=== PATIENT | male | born 1975 | race African-American/Black ===

== ENCOUNTER 2016-07-10 18:07 | Emergency (ER) | payer OTHER ==
[~2016-07-10] VITALS: Ht 193 cm; Wt 83.9 kg
--- NOTE | ~2016-07-10 | EKG ---
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 07/11/16 1423 1844 1844 Washington Morrison MD, FACC /EPI
[~2016-07-10 18:07] MED LIST: BACTRIM DS TAB1 EACH PO; BENTYL20 MG PO; CIPROFLOXACIN500 M1 PO; COMPAZINE5 MG PO; DENIES; FLAGYL500 MG PO; FLEXERIL PO; FLOMAX0.4 MG PO; LORTAB 5 MG/5001 TA1 PO; NOHOMEMEDICATIONS; NORCO 5-325 TA1 EACH PO; ONDANSETRON HCL4 M2 PO; PERCOCET 5-3251 EACH PO; PHENERGAN 25 MG25 M1 PO; PHENERGAN 25 MG25 MG PO; PREDNISONE50 MG PO; PRILOSEC 20 MG20 MG PO; PRILOSEC20 MG; PRILOSEC40 MG PO; SUPRAX400 M1 PO; VICODIN 5-5001 EACH PO; ZOFRAN 4 MG ORAL4 M1 DIS; ZOFRAN ODT4 MG PO; ZOFRAN4 MG PO
[2016-07-10 18:52] LABS: HEMATOCRIT 50.8 % (42.0-52.0); HEMOGLOBIN 16.9 gm/dL (14.0-18.0); MCH 28.9 pg (26.0-34.0); MCHC 33.4 % (28.0-37.0); MCV 86.7 fL (80.0-100.0); PLATELET COUNT 221 thou/uL (150-400); RBC 5.86 mil/uL (4.50-6.00); RDW 14.9 % (10.5-14.5); WBC 13.3 thou/uL (4.0-11.0)
[2016-07-10 18:53] LABS: MANUAL DIFF YES
[2016-07-10 18:57] LABS: CALCIUM 10.3 mg/dL (8.5-10.1); CREATININE 1.5 mg/dL (0.6-1.3); POTASSIUM 3.9 mmol/L (3.5-5.1)
[2016-07-10 19:03] LABS: ALBUMIN 4.7 g/dL (3.4-5.0); TOTAL BILIRUBIN 0.5 mg/dL (<0.1-1.0); TOTAL PROTEIN 9.6 g/dL (6.4-8.2)
[2016-07-10 19:46] LABS: ABSOLUTE NEUTROPHILS 11.4 thou/uL (1.4-8.2); TOTAL CELL COUNT 100
[2016-07-10 19:47] LABS: ANISOCYTOSIS 1+
[2016-07-10 20:57] LABS: URINE BILIRUBIN 1+ (Negative); URINE BLOOD NEGATIVE (Negative); URINE COLOR YELLOW; URINE KETONES 3+ (Negative); URINE LEUKOCYTES-REFLEX NEGATIVE (Negative); URINE PROTEIN (DIPSTICK) 2+ (Negative); URINE SPECIFIC GRAVITY >= 1.030 (1.003-1.035); URINE UROBILINOGEN 0.2 E.U./dl (0.2-1.0)
[2016-07-10 21:18] LABS: URINE GLUCOSE-RANDOM* NEGATIVE (Negative)
[2016-07-10] MEDS ORDERED: PHENERGAN 25 MG25 M1 PO (21:18)
[2016-07-10 21:41] LABS: SQUAMOUS None Seen /LPF (0-3)
[2016-07-10 21:42] LABS: AMORPHOUS URATES Many /LPF (None Seen); CASTS None Seen /LPF (None Seen); CRYSTALS None Seen /LPF (None Seen); URINE RBC None Seen /HPF (0-2); URINE WBC-REFLEX None Seen /HPF (0-5)
== END 2016-07-10 22:10 | disposition home or self-care (01) ==
LOC: ER 18:07
PROVIDERS: Physician Assistant
DX: R10.30 Lower abdominal pain, unspecified (principal); R10.13 Epigastric pain; R19.7 Diarrhea, unspecified; R11.2 Nausea with vomiting, unspecified; F17.210 Nicotine dependence, cigarettes, uncomplicated; Z87.442 Personal history of urinary calculi; Z88.1 Allergy status to other antibiotic agents

== ENCOUNTER 2019-02-10 16:35 | Emergency (ER) | payer OTHER ==
[~2019-02-10] VITALS: Ht 193 cm; Wt 79.4 kg
[2019-02-10 18:53] LABS: ABSOLUTE NEUTROPHILS 13.9 thou/uL (1.4-8.2); BASOPHILS 0.4 % (0.0-2.0); EOSINOPHILS 0.1 % (0.0-3.0); HEMATOCRIT 50.7 % (42.0-52.0); LYMPHOCYTES 7.2 % (24.0-44.0); MCH 29.2 pg (26.0-34.0); MCHC 33.5 g/dL (28.0-37.0); MONOCYTES 2.3 % (1.0-8.0); PLATELET COUNT 204 thou/uL (150-400); RBC 5.82 mil/uL (4.50-6.00); RDW 14.3 % (10.5-14.5); WBC 15.4 thou/uL (4.0-11.0)
[2019-02-10 18:59] LABS: URINE BLOOD NEGATIVE (Negative); URINE CLARITY CLEAR; URINE GLUCOSE-RANDOM* NEGATIVE (Negative); URINE KETONES 1+ (Negative); URINE LEUKOCYTES-REFLEX NEGATIVE (Negative); URINE NITRITE-REFLEX NEGATIVE (Negative); URINE PROTEIN (DIPSTICK) 2+ (Negative); URINE SPECIFIC GRAVITY 1.025 (1.005-1.035); URINE UROBILINOGEN 0.2 E.U./dl (0.2-1.0)
[2019-02-10 19:00] LABS: URINE COLOR LIGHT AMBER
[2019-02-10 19:02] LABS: ICTOTEST (BILI CONFIRMATORY) Negative (Negative); URINE BILIRUBIN NEGATIVE (Negative)
[2019-02-10 19:06] LABS: CREATININE 1.3 mg/dL (0.7-1.3); POTASSIUM 4.1 mmol/L (3.5-5.1)
[2019-02-10 19:12] LABS: ALBUMIN 5.1 g/dL (3.4-5.0); TOTAL BILIRUBIN 0.6 mg/dL (<0.1-1.0); TOTAL PROTEIN 10.2 g/dL (6.4-8.2)
[2019-02-10 19:22] LABS: SQUAMOUS 0-3 Few /LPF (0-3)
[2019-02-10 19:23] LABS: CASTS None Seen /LPF (None Seen); MUCUS >6 Heavy strn/LPF (None Seen)
[2019-02-10 19:24] LABS: AMORPHOUS URATES Few /LPF (None Seen); BACTERIA-REFLEX None Seen /HPF (None Seen); URINE RBC 0-2 Rare /HPF (0-2); URINE WBC-REFLEX 0-5 Rare /HPF (0-5)
[2019-02-10] MEDS ORDERED: AUGMENTIN 875-1 EACH PO (19:40)
[2019-02-10] MEDS ORDERED: ZOFRAN ODT4 MG PO (19:46)
[2019-02-10 20:06] VITALS: BP 107/62
== END 2019-02-10 20:08 | disposition still patient (30) ==
LOC: ER 16:35
PROVIDERS: Emergency Medicine
DX: K57.92 Diverticulitis of intestine, part unspecified, without perforation or abscess without bleeding (principal); R11.2 Nausea with vomiting, unspecified; F17.210 Nicotine dependence, cigarettes, uncomplicated; Z87.442 Personal history of urinary calculi; Z88.1 Allergy status to other antibiotic agents; Z88.2 Allergy status to sulfonamides; Z88.8 Allergy status to other drugs, medicaments and biological substances

== ENCOUNTER 2019-02-12 10:59 | Emergency (ER) | payer OTHER ==
[~2019-02-12] VITALS: Ht 193 cm; Wt 79.4 kg
[~2019-02-12 10:59] MED LIST changes: +AUGMENTIN 875-1 EACH PO
[2019-02-12 11:35] LABS: BASOPHILS 0.5 % (0.0-2.0); EOSINOPHILS 0.3 % (0.0-3.0); HEMATOCRIT 49.6 % (42.0-52.0); HEMOGLOBIN 16.7 gm/dL (14.0-18.0); LYMPHOCYTES 18.6 % (24.0-44.0); MCH 29.5 pg (26.0-34.0); MCHC 33.7 g/dL (28.0-37.0); MCV 87.7 fL (80.0-100.0); MONOCYTES 7.4 % (1.0-8.0); PLATELET COUNT 208 thou/uL (150-400); POLYS 73.2 % (36.0-66.0); RBC 5.65 mil/uL (4.50-6.00); RDW 14.6 % (10.5-14.5); WBC 12.3 thou/uL (4.0-11.0)
[2019-02-12 11:37] LABS: CALCIUM 10.5 mg/dL (8.5-10.1); CREATININE 1.2 mg/dL (0.7-1.3); POTASSIUM 4.1 mmol/L (3.5-5.1)
[2019-02-12 11:40] LABS: URINE BLOOD NEGATIVE (Negative); URINE CLARITY CLEAR; URINE COLOR YELLOW; URINE GLUCOSE-RANDOM* NEGATIVE (Negative); URINE KETONES 1+ (Negative); URINE LEUKOCYTES-REFLEX NEGATIVE (Negative); URINE NITRITE-REFLEX NEGATIVE (Negative); URINE PROTEIN (DIPSTICK) 2+ (Negative); URINE SPECIFIC GRAVITY >= 1.030 (1.005-1.035); URINE UROBILINOGEN 0.2 E.U./dl (0.2-1.0)
[2019-02-12 11:42] LABS: ICTOTEST (BILI CONFIRMATORY) Negative (Negative); URINE BILIRUBIN NEGATIVE (Negative)
[2019-02-12 11:44] LABS: ALBUMIN 4.9 g/dL (3.4-5.0); TOTAL BILIRUBIN 0.8 mg/dL (<0.1-1.0); TOTAL PROTEIN 10.1 g/dL (6.4-8.2)
[2019-02-12] MEDS ORDERED: PRILOSEC OTC20 MG PO (11:48)
[2019-02-12 11:49] LABS: CASTS None Seen /LPF (None Seen); SQUAMOUS 0-3 Few /LPF (0-3); URINE WBC-REFLEX 0-5 Rare /HPF (0-5)
[2019-02-12 11:50] LABS: BACTERIA-REFLEX 1-9 Few /HPF (None Seen); CRYSTALS None Seen /LPF (None Seen); MUCUS 0-3 Light strn/LPF (None Seen); URINE RBC None Seen /HPF (0-2)
[2019-02-12 12:45] VITALS: BP 107/67
[2019-02-12] MEDS ORDERED: MACROBID 100 M100 M1 PO (12:52)
[2019-02-12] MEDS ORDERED: NORCO 5-325 TA1 EAC1 PO (12:54)
[2019-02-12] MEDS ORDERED: LEVSIN0.125 MG PO (12:54)
[2019-02-12] MEDS ORDERED: SENNA8.6 MG PO (12:54)
[2019-02-12] MEDS ORDERED: OMEPRAZOLE 20 M20 M1 PO (13:18)
[2019-02-12] MEDS ORDERED: CARAFATE 1 GM TA1 G1 PO (13:18)
== END 2019-02-12 13:04 | disposition home or self-care (01) ==
LOC: ER 10:59
PROVIDERS: Physician Assistant
DX: R10.31 Right lower quadrant pain (principal); R10.32 Left lower quadrant pain; R11.2 Nausea with vomiting, unspecified; F17.210 Nicotine dependence, cigarettes, uncomplicated; Z88.1 Allergy status to other antibiotic agents; Z88.2 Allergy status to sulfonamides; Z87.891 Personal history of nicotine dependence

== ENCOUNTER 2019-02-13 09:32 | Emergency (ER) | payer OTHER ==
[~2019-02-13] VITALS: Ht 193 cm; Wt 79.4 kg
--- NOTE | ~2019-02-13 | EMS ---
[address] [address] EMS Patient Care Report Name: DEWEY LOZANO Room #: REG MICHELLE Hooks#: [id number] Admission: 02/13/19 Attend Phys: Discharge: Date of : 73 Report #: [id number] THIS REPORT FOR: //name// Report Transmitted: 02/13/2019 08:52 EMS Care Summary [place], [place]/[facility] Incident [id number] @ 02/13/2019 08:54 Incident Location [address] [place] [address] Patient DEWEY LOZANO Male, 43 Years 1975 Patient Address [address] [place] [address] Patient History Diverticulitis, Patient Allergies No known allergies, Patient Medications Prilosec, Chief Complaint diverticulits is acting up Disposition Transported No Lights/[place] Dispatch Reason Abdominal Pain/Problems Transported To [facility] Narrative 43 y/o male with abd pain Upon arrival the pt was walking out of the residence and met EMS at the ambulance. The pt states his diverticulitis is acting up and he is [address] [address] EMS Patient Care Report Name: DEWEY LOZANO Room #: REG Neva#: [id number] Admission: 02/13/19 Attend Phys: Discharge: Date of : 73 Report #: [id number] experiencing lower R and Lower L abd pain that is an 02/10 aching burning pain. The pt states he was at the hospital yesterday for this same problem and they told him to come back if it got worse. The pt is now wanting to go back to [facility] to be re-evaluated. The pt is conscious A&O x 4 with a GCS of 15. He has a patent airway, breathing is normal, and has a strong reg radial pulse. The pt ambulated into the ambulance on his own with a steady gait. The pt sat on the cot, he was secured to the cot, and VS were obtained. The pt states he has picked up his antibiotic and pain medications but does not know the names of any of the medications. We offered to get his meds for him but he refused. the pt was transported to [place] per the pt's request. There were no incidents or changes with the pt during transport to [facility]. Pt was taken to room 8 per ED request. Report was given and EMS returned to service. Initial Vitals @09:11P: 56,R: 14,BP: 147/87,Pain: 8/10,GCS: 15,CO: 7,SpO2: 100,Revised Trauma: 12, @09:08P: 63,R: 14,BP: 155/90,Pain: 0/10,GCS: 15,SpO2: 99,Revised Trauma: 12, Assessments @09:13MENTAL:Person Oriented,Time Oriented,Event Oriented,Place Oriented,SKIN:HEENT:Head/Face: No Abnormalities,Neck/Airway: No Abnormalities,LUNG SOUNDS:Left Lower: Tenderness,General: Other,Right Lower: Tenderness,Left Upper: No Abnormalities,Right Upper: No Abnormalities,ABDOMEN:Left Lower: Tenderness,General: Other,Right Lower: Tenderness,Left Upper: No Abnormalities,Right Upper: No Abnormalities,PELVIS//GI:No Abnormalities,EXTREMITIES:Left Arm: No Abnormalities,Right Arm: No Abnormalities,Left Leg: No Abnormalities,Right Leg: No Abnormalities,PULSE:NEURO:No Abnormalities, Impression Abdominal Pain Procedures @09:13ALS AssessmentResponse: UnchangedSucceeded Timeline 08:52,Call Received 08:52,Dispatch Notified 08:54,Dispatched 08:55,En Route 09:04,On Scene 09:05,At Patient 09:08,BP: 155/90 M,PULSE: 63,RR: 14 R,SPO2: 99 Ox,ETCO2: ,BG: ,PAIN: 0,GCS: 15, 09:09,Depart Scene 09:11,BP: 147/87 M,PULSE: 56,RR: 14 R,SPO2: 100 Ox,ETCO2: ,BG: ,PAIN: 8,GCS: 15, [address] [place] [address] EMS Patient Care Report Name: BLAKEDEWEY Room #: REG MICHELLE Hooks#: [id number] Admission: 02/13/19 Attend Phys: Discharge: Date of : 73 Report #: [id number] 09:13,ALS Assessment,Response: UnchangedSucceeded, 09:38,At Destination 09:49,Call Closed Disclaimer [email or web address] Copyright 2019 [employer] This EMS Care Summary contains data elements from the applicable legal record (which may be displayed differently). It is designed to provide pertinent information for the following purposes: continuity of care, clinical quality, and state data reporting. The complete legal record is available to ED staff and administrators of the receiving hospital in [employer] Patient Tracker. All data is provided "as is."
[~2019-02-13 09:32] MED LIST changes: +CARAFATE 1 GM TA1 G1 PO; +LEVSIN0.125 MG PO; +MACROBID 100 M100 M1 PO; +NORCO 5-325 TA1 EAC1 PO; +OMEPRAZOLE 20 M20 M1 PO; +PRILOSEC OTC20 MG PO; +SENNA8.6 MG PO
[2019-02-13 09:54] LABS: ABSOLUTE NEUTROPHILS 9.5 thou/uL (1.4-8.2); BASOPHILS 0.7 % (0.0-2.0); EOSINOPHILS 0.5 % (0.0-3.0); HEMATOCRIT 46.9 % (42.0-52.0); MCH 29.7 pg (26.0-34.0); MCHC 34.1 g/dL (28.0-37.0); MCV 87.2 fL (80.0-100.0); MONOCYTES 6.8 % (1.0-8.0); PLATELET COUNT 180 thou/uL (150-400); RBC 5.37 mil/uL (4.50-6.00); RDW 14.2 % (10.5-14.5); WBC 12.5 thou/uL (4.0-11.0)
[2019-02-13 09:57] LABS: CALCIUM 9.9 mg/dL (8.5-10.1); CREATININE 1.3 mg/dL (0.7-1.3); POTASSIUM 3.2 mmol/L (3.5-5.1)
[2019-02-13 11:19] VITALS: BP 131/65
== END 2019-02-13 11:20 | disposition home or self-care (01) ==
LOC: ER 09:32
PROVIDERS: Emergency Medicine
DX: R10.84 Generalized abdominal pain (principal); F17.210 Nicotine dependence, cigarettes, uncomplicated; Z88.1 Allergy status to other antibiotic agents; Z88.2 Allergy status to sulfonamides; Z87.442 Personal history of urinary calculi